=== PATIENT | male | born 1960 | race Caucasian/White ===

== ENCOUNTER 2017-11-27 08:33 | Inpatient (IN) | payer OTHER ==
[2017-11-27 09:38] VITALS: BMI 29.9
--- NOTE | 2017-11-27 10:23 | HP ---
COWS - Scale Resting Pulse: 0= [place] 80 or Below Sweatin= Chills/Flushing Restless Observation: 1= Difficult to Sit Still Pupil Size: 0= Normal to Room Light Bone or Joint Aches: 1= Mild Discomfort Runny Nose/ Eye Tearin= Nasal Congestion GI Upset > 30mins: 1= Stomach Cramp Tremor Observation: 2= Slight Tremor Visible Yawning Observation: 0= None Anxiety or Irritability: 1=Feels Anxious/Irritable Goose Flesh Skin: 0=Smooth Skin COWS Score: 8 CIWA Score - CIWA Score Nausea/Vomitin Muscle Tremors: 4-Moderate,w/Arms Extend Anxiety: 4-Mod. Anxious/Guarded Agitation: 1-Slight > Activity Paroxysmal Sweats: 1-Minimal Palms Moist Orientation: 0-Oriented Tacttile Disturbances: 1-Very Mild Itch/Numbness Auditory Disturbances: 0-None Visual Disturbances: 1-Very Mild Sensitivity Headache: 1-Very Mild CIWA-Ar Total Score: 15 Admission ROS BHS - HPI Chief Complaint: I need help, I could have , I'm wasting my life Allergies/Adverse Reactions: Allergies Allergy/AdvReac Type Severity Reaction Status Date / Time No Known Allergies Allergy Verified 11/27/17 10:17 History of Present Illness: 57 yo gentleman here for detox from alcohol and opiates - first time here but previously in [facility] and elsewhere. Three years ago was on [facility] MMTP (80mg ) but came off it, went into [facility] residential treatment. Tried suboxone in October 2017 but 'didn't like it'. Has had an overdose, never seizures. Was in [facility] ED on 11/24/17 because of chest pain related to drug use. Exam Limitations: Clinical Condition - Ebola screening Have you traveled outside of the country in the last 21 days: No (N) Have you had contact with anyone from an Ebola affected area: No Have you been sick,other than usual withdrawal symptoms: No Do you have a fever: No - Review of Systems Constitutional: Chills, Loss of Appetite, Night Sweats, Changes in sleep, Weakness EENT: reports: Blurred Vision, Nose Congestion Respiratory: reports: No Symptoms reported Cardiac: reports: Chest Tightness GI: reports: Poor Appetite, Poor Fluid Intake, Indigestion, Abdominal cramping : reports: Frequency Musculoskeletal: reports: Back Pain Integumentary: reports: Dryness Neuro: reports: Headache, Tremors Endocrine: reports: No Symptoms Reported Hematology: reports: No Symptoms Reported Psychiatric: reports: Judgement Intact, Mood/Affect Appropiate, Orientated x3, Anxious Other Systems: Reviewed and Negative Patient History - Patient Medical History Hx Asthma: Yes (inhaler) Hx Cancer: No Hx Hypertension: No Hx Hypercholesterolemia: No Hx Pacemaker: No Hx Seizures: No Hx Diabetes: No Hx Gastrointestinal Disorders: No Hx Liver Disease: No Hx Genitourinary Disorders: No Hx Sexually Transmitted Disorders: No Hx Renal Disease (ESRD): No Hx Thyroid Disease: No Hx Human Immunodeficiency Virus (HIV): No Hx Hepatitis C: No Hx Depression: Yes (due to my life, with anxiety, no meds) Hx Suicide Attempt: No Hx Bipolar Disorder: No Hx Schizophrenia: No - Patient Surgical History Past Surgical History: No - PPD History Previous Implant?: Yes Documented Results: Negative w/o proof Implanted On Prior [facility] Admission?: No PPD to be Administered?: Yes - Reproductive History Patient is a Female of Child Bearing Age (11 -55 yrs old): No (male) - Smoking Cessation Smoking history: Current every day smoker Have you smoked in the past 12 months: Yes Aproximately how many cigarettes per day: 5 Initiated information on smoking cessation: Yes 'Breaking Loose' booklet given: 11/27/17 (give on floor) - Substance & Tx. History Hx Alcohol Use: Yes Hx Substance Use: Yes Substance Use Type: Alcohol - Substances Abused alcohol Route: Oral Frequency: Daily Amount used: four cans of 24 oz Four [place] Age of first use: 18 Date of Last Use: 11/27/17 heroin Route: Inhalation Frequency: Daily Amount used: 5 bags Age of first use: 16 Date of Last Use: 11/27/17 Non-Rx Methadone Route: Oral Frequency: 1-3 times last 30 days Amount used: 80mg Age of first use: 56 Date of Last Use: 11/24/17 Family Disease History - Family Disease History Family Disease History: Heart Disease: Mother (, ), Other: Father (no knowledge), Mother, Daughter (three - living - healthy (one with asthma)) Admission Physical Exam BHS - Vital Signs Vital Signs: Vital Signs - 24 hr 11/27/17 09:33 Temperature 99.0 F Pulse Rate 62 Respiratory 17 Rate Blood Pressure 128/81 - Physical General Appearance: Yes: Nourished, Appropriately Dressed, Moderate Distress, Tremorous, Anxious HEENTM: Yes: EOMI, Hearing grossly Normal, Normocephalic, Normal Voice, Pharynx Normal Respiratory: Yes: Normal Breath Sounds, No Respiratory Distress Neck: Yes: No masses,lesions,Nodules Breast: Yes: Breast Exam Deferred Cardiology: Yes: Regular Rhythm, Regular Rate Abdominal: Yes: Soft Genitourinary: Yes: Frequency Back: Yes: Normal Inspection Musculoskeletal: Yes: full range of Motion, Gait Steady, Back pain, Muscle Pain Extremities: Yes: Normal Inspection, Normal Range of Motion, Non-Tender, Tremors Neurological: Yes: Fully Oriented, Alert, Motor Strength 5/5, Normal Mood/Affect , Normal Response Integumentary: Yes: Normal Color, Warm Lymphatic: Yes: Within Normal Limits - Diagnostic (1) Opioid dependence with withdrawal Current Visit: Yes Status: Chronic (2) Alcohol dependence with uncomplicated withdrawal Current Visit: Yes Status: Chronic (3) HTN (hypertension) Current Visit: Yes Status: Chronic Qualifiers: Hypertension type: essential hypertension Qualified Code(s): I10 - Essential (primary) hypertension (4) Asthma Current Visit: Yes Status: Chronic Qualifiers: Asthma severity: mild Asthma persistence: intermittent Asthma complication type: unspecified Qualified Code(s): J45.20 - Mild intermittent asthma, uncomplicated (5) Nicotine dependence Current Visit: Yes Status: Acute Qualifiers: Nicotine product type: cigarettes Substance use status: uncomplicated Qualified Code(s): F17.210 - Nicotine dependence, cigarettes, uncomplicated Cleared for Admission [facility] - Detox or Rehab [facility] Level of Care: Medically Managed Detox Regimen/Protocol: Methadone/Librium [facility] Breath Alcohol Content Breath Alcohol Content: 0.033 Urine Drug Screen - Results Drug Screen Negative: No Urine Drug Screen Results: OPI-Opiates, MTD-Methadone, FEN-Fentanyl
[2017-11-27] MEDS ORDERED: MENTHOL/PHENOL 1 EACH UD MM PRN (10:34)
[2017-11-27] MEDS ORDERED: MAGNESIUM CITRATE 300 ML BOTTLE PO PRN (10:34)
[2017-11-27] MEDS ORDERED: ACETAMINOPHEN 325 MG TABLET (FP) PO PRN (10:34)
[2017-11-27] MEDS ORDERED: guaiFENesin/D-METHORPHAN HB 10 ML UNIT-DOSE CUPS PO PRN (10:34)
[2017-11-27] MEDS ORDERED: MAGNESIUM HYDROX 2400MG/30ML ORAL SUSPENSION 30 ML CUP PO PRN (10:34)
[2017-11-27] MEDS ORDERED: P-EPHED 60MG/TRIPROLIDI 2.5MG TABLET PO PRN (10:34)
[2017-11-27] MEDS ORDERED: NICOTINE POLACRILEX 4 MG GUM BUC PRN (10:34)
[2017-11-27] MEDS ORDERED: LOPERAMIDE HCL 2 MG CAPSULE PO PRN (10:34)
[2017-11-27] MEDS ORDERED: hydrOXYzine PAMOATE 25 MG CAPSULE (FP) PO PRN (10:34)
[2017-11-27] MEDS ORDERED: chlordiazePOXIDE HCL 25 MG CAPSULE PO PRN (10:34)
[2017-11-27] MEDS ORDERED: MAG HYDROX/AL HYDROX/SIMETH 30 ML UNIT-DOSE CUP PO PRN (10:34)
[2017-11-27] MEDS ORDERED: chlordiazePOXIDE HCL 25 MG CAPSULE PO ONE (12:00)
[2017-11-27] MEDS ORDERED: METHADONE HCL 10 MG TABLET (FOR DETOX USE ONLY) PO ONE ×2 (12:30→23:00)
[2017-11-27] MEDS: HYDROCHLOROTHIAZIDE 25 MG TABLET (FP) PO SCH (12:52)
[2017-11-27] MEDS: ALBUTEROL SO4 8 GM HFA INHALER IH PRN ×2 (17:17→23:21)
[2017-11-27] MEDS: chlordiazePOXIDE HCL 25 MG CAPSULE PO SCH ×2 (17:17→22:27)
[2017-11-27 18:16] LABS: URINE APPEARANCE SLCLOUDY; URINE BILIRUBIN NEGATIVE (<2.0 mg/dL); URINE COLOR YELLOW; URINE GLUCOSE (UA) NEGATIVE (NEGATIVE); URINE KETONE NEGATIVE (NEGATIVE); URINE LEUK ESTERASE NEGATIVE (NEGATIVE); URINE NITRITE NEGATIVE (NEGATIVE); URINE PROTEIN NEGATIVE (NEGATIVE); URINE UROBILINOGEN NEGATIVE mg/dL (0.2-1.0)
[2017-11-27] MEDS ORDERED: MELATONIN 5 MG TABLETS PO PRN (22:00)
[2017-11-27] MEDS: THIAMINE HCL 100 MG TABLET (FP) PO SCH (22:27)
[2017-11-28] MEDS: chlordiazePOXIDE HCL 25 MG CAPSULE PO SCH ×4 (05:14→22:38)
[2017-11-28] MEDS ORDERED: METHADONE HCL 10 MG TABLET (FOR DETOX USE ONLY) PO SCH (10:00)
[2017-11-28 10:38] LABS: HEMATOCRIT 40.6 % (35.4-49); HEMOGLOBIN 13.4 GM/dL (11.7-16.9); MCH 28.6 pg (25.7-33.7); MEAN CELL VOLUME 86.8 fl (80-96); PLATELET COUNT 203 K/MM3 (134-434); RBC 4.68 M/mm3 (4.00-5.60); RDW 13.9 % (11.9-15.9); WHITE BLOOD COUNT 6.1 K/mm3 (4.0-10.0)
[2017-11-28] MEDS: PRENATAL VITAMINS W/ FOLIC ACID TABLET (FP) PO SCH (10:39)
[2017-11-28] MEDS: HYDROCHLOROTHIAZIDE 25 MG TABLET (FP) PO SCH (10:39)
[2017-11-28 10:52] LABS: CHLORIDE 105 mmol/L (98-107); POTASSIUM 3.7 mmol/L (3.5-5.1); SODIUM 142 mmol/L (136-145)
[2017-11-28 11:00] LABS: ALBUMIN 3.2 g/dl (3.4-5.0); ALK PHOS 48 U/L (45-117); ANION GAP 9 MMOL/L (8-16); BILIRUBIN,TOTAL 0.5 mg/dL (0.2-1.0); BLOOD UREA NITROGEN 13 mg/dL (7-18); CALCIUM 8.3 mg/dL (8.5-10.1); CO2 28 mmol/L (21-32); CREATININE 0.6 mg/dL (0.55-1.3); GLUCOSE,RANDOM 90 mg/dL (74-106); SGOT/AST 12 U/L (15-37); SGPT/ALT 18 U/L (13-61); TOT PROT 5.8 g/dl (6.4-8.2)
--- NOTE | 2017-11-28 14:41 | PN ---
[facility] CIWA - CIWA Score Nausea/Vomitin Muscle Tremors: 4-Moderate,w/Arms Extend Anxiety: 4-Mod. Anxious/Guarded Agitation: 4-Moderately Restless Paroxysmal Sweats: 3 Orientation: 0-Oriented Tacttile Disturbances: 1-Very Mild Itch/Numbness Auditory Disturbances: 0-None Visual Disturbances: 0-None Headache: 0-None Present CIWA-Ar Total Score: 19 S COWS - Scale Resting Pulse: 0= [place] 80 or Below Sweatin= Chills/Flushing Restless Observation: 3= Extraneous Movement Pupil Size: 1= Pupils >than Normal Bone or Joint Aches: 2= Severe Diffuse Aches Runny Nose/ Eye Tearin= Runny Nose/Eyes GI Upset > 30mins: 2= Nausea/Diarrhea Tremor Observation of Outstretched Hands: 2= Slight Tremor Visible Yawning Observation: 1= 1-2x During Session Anxiety or Irritability: 2=Irritable/Anxious Goose Flesh Skin: 0=Smooth Skin COWS Score: 16 S Progress Note (SOAP) Subjective: Body ache, sweating, chills, interrupted sleep Objective: 11/28/17 14:39 Last Vital Signs Temp Pulse Resp BP Pulse Ox 97.0 F L 60 18 128/76 11/28/17 13:51 11/28/17 13:51 11/28/17 13:51 11/28/17 13:51 Laboratory Tests 11/27/17 11/28/17 11/28/17 12:13 07:25 07:25 WBC 6.1 RBC 4.68 Hgb 13.4 Hct 40.6 MCV 86.8 MCH 28.6 MCHC 33.0 RDW 13.9 Plt Count 203 MPV 8.0 Sodium 142 Potassium 3.7 Chloride 105 Carbon Dioxide 28 Anion Gap 9 BUN 13 Creatinine 0.6 Creat Clearance w eGFR > 60 Random Glucose 90 Calcium 8.3 L Total Bilirubin 0.5 AST 12 L ALT 18 Alkaline Phosphatase 48 Total Protein 5.8 L Albumin 3.2 L Urine Color Yellow Urine Appearance Slcloudy Urine pH 5.0 Ur Specific [place] 1.014 Urine Protein Negative Urine Glucose (UA) Negative Urine Ketones Negative Urine Blood Negative Urine Nitrite Negative Urine Bilirubin Negative Urine Urobilinogen Negative Ur Leukocyte Esterase Negative RPR Titer 11/28/17 07:25 WBC RBC Hgb Hct MCV MCH MCHC RDW Plt Count MPV Sodium Potassium Chloride Carbon Dioxide Anion Gap BUN Creatinine Creat Clearance w eGFR Random Glucose Calcium Total Bilirubin AST ALT Alkaline Phosphatase Total Protein Albumin Urine Color Urine Appearance Urine pH Ur Specific [place] Urine Protein Urine Glucose (UA) Urine Ketones Urine Blood Urine Nitrite Urine Bilirubin Urine Urobilinogen Ur Leukocyte Esterase RPR Titer Nonreactive Labs reviewed Assessment: 11/28/17 14:40 Withdrawal symptoms Plan: Continue detox
--- NOTE | 2017-11-28 22:30 | EKG ---
Test Reason : Blood Pressure : / mmHG Vent. Rate : 058 BPM Atrial Rate : 058 BPM P-R Int : 166 ms QRS Dur : 100 ms QT Int : 444 ms P-R-T Axes : 050 -05 030 degrees QTc Int : 435 ms SINUS BRADYCARDIA SEPTAL INFARCT , AGE UNDETERMINED ABNORMAL ECG NO PREVIOUS ECGS AVAILABLE Confirmed by TONY BROWN MD ([id number]) on 11/28/2017 10:29:58 PM Referred By: Confirmed By:OTNY BROWN MD
[2017-11-28] MEDS: THIAMINE HCL 100 MG TABLET (FP) PO SCH (22:38)
[2017-11-28] MEDS: ALBUTEROL SO4 8 GM HFA INHALER IH PRN (22:40)
[2017-11-29] MEDS: chlordiazePOXIDE HCL 25 MG CAPSULE PO SCH ×2 (05:19→10:31)
[2017-11-29] MEDS: PRENATAL VITAMINS W/ FOLIC ACID TABLET (FP) PO SCH (10:30)
[2017-11-29] MEDS: METHADONE HCL 5 MG TABLET (FOR DETOX USE ONLY) PO SCH (10:31)
[2017-11-29] MEDS: HYDROCHLOROTHIAZIDE 25 MG TABLET (FP) PO SCH (10:31)
[2017-11-29] MEDS: IBUPROFEN 400 MG TABLET (FP) PO PRN (15:16)
[2017-11-29] MEDS: chlordiazePOXIDE 5 MG CAPSULE PO SCH ×2 (17:34→22:16)
--- NOTE | 2017-11-29 18:01 | PN ---
BHS COWS - Scale Resting Pulse: 0= [place] 80 or Below Sweatin=Flushed/Facial Moisture Restless Observation: 3= Extraneous Movement Pupil Size: 0= Normal to Room Light Bone or Joint Aches: 1= Mild Discomfort Runny Nose/ Eye Tearin= Nasal Congestion GI Upset > 30mins: 1= Stomach Cramp Tremor Observation of Outstretched Hands: 2= Slight Tremor Visible Yawning Observation: 1= 1-2x During Session Anxiety or Irritability: 2=Irritable/Anxious Goose Flesh Skin: 0=Smooth Skin COWS Score: 13 BHS Progress Note (SOAP) Subjective: swelling to face ?toothaache Objective: 11/29/17 18:00 A O x 3 Swelling/tenderness to L side of face around nasolabial folds No s/ of tooth decay No neuro deficit Assessment: 11/29/17 18:01 withdrawal sx facial swelling/pain Plan: continue detox motrin for pain
[2017-11-29] MEDS: ALBUTEROL SO4 8 GM HFA INHALER IH PRN (19:29)
[2017-11-29] MEDS: THIAMINE HCL 100 MG TABLET (FP) PO SCH (22:16)
[2017-11-30] MEDS: chlordiazePOXIDE 5 MG CAPSULE PO SCH ×2 (05:58→10:09)
[2017-11-30] MEDS: HYDROCHLOROTHIAZIDE 25 MG TABLET (FP) PO SCH (10:10)
[2017-11-30] MEDS: METHADONE HCL 5 MG TABLET (FOR DETOX USE ONLY) PO SCH (10:10)
[2017-11-30] MEDS: PRENATAL VITAMINS W/ FOLIC ACID TABLET (FP) PO SCH (10:10)
[2017-11-30] MEDS: IBUPROFEN 400 MG TABLET (FP) PO PRN ×2 (10:11→22:38)
--- NOTE | 2017-11-30 10:40 | PN ---
[facility] Progress Note Note: PATIENT TOLERATING DETOX WELL. C/O LEFT SIDE OF FACIAL SWELLING, ORIGIN UNKNOWN. DENIES FALLS, INJURY AND TOOTHACHE. Vital Signs Temperature 97.2 F L 11/30/17 09:25 Pulse Rate 67 11/30/17 09:25 Respiratory Rate 18 11/30/17 09:25 Blood Pressure 128/75 11/30/17 09:25 O2 Sat by Pulse Oximetry (%) Laboratory Tests 11/27/17 11/28/17 11/28/17 12:13 07:25 07:25 WBC 6.1 RBC 4.68 Hgb 13.4 Hct 40.6 MCV 86.8 MCH 28.6 MCHC 33.0 RDW 13.9 Plt Count 203 MPV 8.0 Sodium 142 Potassium 3.7 Chloride 105 Carbon Dioxide 28 Anion Gap 9 BUN 13 Creatinine 0.6 Creat Clearance w eGFR > 60 Random Glucose 90 Calcium 8.3 L Total Bilirubin 0.5 AST 12 L ALT 18 Alkaline Phosphatase 48 Total Protein 5.8 L Albumin 3.2 L Urine Color Yellow Urine Appearance Slcloudy Urine pH 5.0 Ur Specific [place] 1.014 Urine Protein Negative Urine Glucose (UA) Negative Urine Ketones Negative Urine Blood Negative Urine Nitrite Negative Urine Bilirubin Negative Urine Urobilinogen Negative Ur Leukocyte Esterase Negative RPR Titer 11/28/17 07:25 WBC RBC Hgb Hct MCV MCH MCHC RDW Plt Count MPV Sodium Potassium Chloride Carbon Dioxide Anion Gap BUN Creatinine Creat Clearance w eGFR Random Glucose Calcium Total Bilirubin AST ALT Alkaline Phosphatase Total Protein Albumin Urine Color Urine Appearance Urine pH Ur Specific [place] Urine Protein Urine Glucose (UA) Urine Ketones Urine Blood Urine Nitrite Urine Bilirubin Urine Urobilinogen Ur Leukocyte Esterase RPR Titer Nonreactive OBJ: ALERT AND ORIENTED SKIN WARM AND DRY CAR S1S2 RESP CTA BL FACE: LEFT CHEEK AREA WITH MILD SWELLING, NO REDNESS OR MAXILLARY TENDERNESS. A/P: FACIAL SWELLING COOL COMPRESS ORDERED DAILY AND PRN FACIAL XRAY CONTINUE MOTRIN PRN CONTINUE TO MONITOR CLINICALLY
[2017-11-30] MEDS: chlordiazePOXIDE HCL 10 MG CAPSULE PO SCH ×2 (17:36→22:37)
[2017-11-30] MEDS: ALBUTEROL SO4 8 GM HFA INHALER IH PRN (17:50)
[2017-11-30] MEDS: THIAMINE HCL 100 MG TABLET (FP) PO SCH (22:37)
[2017-12-01] MEDS: chlordiazePOXIDE HCL 10 MG CAPSULE PO SCH ×2 (05:30→10:31)
[2017-12-01] MEDS ORDERED: METHADONE HCL 10 MG TABLET (FOR DETOX USE ONLY) PO SCH (10:00)
[2017-12-01] MEDS: HYDROCHLOROTHIAZIDE 25 MG TABLET (FP) PO SCH (10:30)
[2017-12-01] MEDS: PRENATAL VITAMINS W/ FOLIC ACID TABLET (FP) PO SCH (10:30)
[2017-12-01] MEDS: IBUPROFEN 400 MG TABLET (FP) PO PRN ×2 (10:32→21:00)
--- NOTE | 2017-12-01 11:35 | PN ---
[facility] Progress Note Note: Patient presents for follow up facial swelling. Tolerating detox well. Patient for discharge in am but is pending rehab bed. Laboratory Tests 11/27/17 11/28/17 11/28/17 12:13 07:25 07:25 WBC 6.1 RBC 4.68 Hgb 13.4 Hct 40.6 MCV 86.8 MCH 28.6 MCHC 33.0 RDW 13.9 Plt Count 203 MPV 8.0 Sodium 142 Potassium 3.7 Chloride 105 Carbon Dioxide 28 Anion Gap 9 BUN 13 Creatinine 0.6 Creat Clearance w eGFR > 60 Random Glucose 90 Calcium 8.3 L Total Bilirubin 0.5 AST 12 L ALT 18 Alkaline Phosphatase 48 Total Protein 5.8 L Albumin 3.2 L Urine Color Yellow Urine Appearance Slcloudy Urine pH 5.0 Ur Specific [place] 1.014 Urine Protein Negative Urine Glucose (UA) Negative Urine Ketones Negative Urine Blood Negative Urine Nitrite Negative Urine Bilirubin Negative Urine Urobilinogen Negative Ur Leukocyte Esterase Negative RPR Titer 11/28/17 07:25 WBC RBC Hgb Hct MCV MCH MCHC RDW Plt Count MPV Sodium Potassium Chloride Carbon Dioxide Anion Gap BUN Creatinine Creat Clearance w eGFR Random Glucose Calcium Total Bilirubin AST ALT Alkaline Phosphatase Total Protein Albumin Urine Color Urine Appearance Urine pH Ur Specific [place] Urine Protein Urine Glucose (UA) Urine Ketones Urine Blood Urine Nitrite Urine Bilirubin Urine Urobilinogen Ur Leukocyte Esterase RPR Titer Nonreactive Vital Signs Temperature 97.4 F L 12/01/17 09:19 Pulse Rate 67 12/01/17 09:19 Respiratory Rate 18 12/01/17 09:19 Blood Pressure 135/82 12/01/17 09:19 O2 Sat by Pulse Oximetry (%) PE: alert and oriented skin warm and dry face: left side cheek area facial swelling improved. No redness or ecchymosis noted. Small swollen area noted at left upper cheek area. car s1s2 resp cta bl a/p: facial swelling withdrawal syndrome facial xray results pending continue cool compress continue detox as per protocol
[2017-12-01] MEDS: ALBUTEROL SO4 8 GM HFA INHALER IH PRN (22:37)
[2017-12-01] MEDS: THIAMINE HCL 100 MG TABLET (FP) PO SCH (22:38)
[2017-12-02] MEDS ORDERED: METHADONE HCL 5 MG TABLET (FOR DETOX USE ONLY) PO SCH (06:00)
[2017-12-02 06:09] VITALS: PULSE 56
[2017-12-02 09:20] VITALS: BP 132/75; TEMP 97.3
[2017-12-02] MEDS: HYDROCHLOROTHIAZIDE 25 MG TABLET (FP) PO SCH (10:30)
[2017-12-02] MEDS: PRENATAL VITAMINS W/ FOLIC ACID TABLET (FP) PO SCH (10:31)
--- NOTE | 2017-12-02 10:43 | DS ---
[facility] Detox Discharge Summary Admission Date: 11/27/17 - History Present History: Alcohol Dependence, Opioid Dependence - Physical Exam Results Vital Signs: Vital Signs Temperature 97.3 F L 12/02/17 09:19 Pulse Rate 56 L 12/02/17 09:19 Respiratory Rate 18 12/02/17 09:19 Blood Pressure 132/75 12/02/17 09:19 O2 Sat by Pulse Oximetry (%) Pertinent Admission Physical Exam Findings: Patient discharged to rehab today (5N). Patient medically stable. Denies medical complaints. Left side facial swelling subsided. XRAY interpretation pending. Patient denies any complaints to facial area. Denies SI/HI. In NAD. Tolerated detox well. Responded well to treatment. Discharge instructions provided. - Treatment Hospital Course: Detox Protocol Followed, Detoxed Safely, Responded well, Discharged Condition Good, Rehab Referral Accepted - Medication Discharge Medications: Ambulatory Orders Albuterol Sulfate Inhaler - [Ventolin Hfa Inhaler -] 2 inh PO Q4H PRN 11/27/17 Hydrochlorothiazide [Hctz -] 25 mg PO DAILY 11/27/17 - Diagnosis (1) Alcohol dependence with uncomplicated withdrawal Current Visit: Yes Status: Resolved (2) Opioid dependence with withdrawal Current Visit: Yes Status: Resolved (3) HTN (hypertension) Current Visit: Yes Status: Chronic Qualifiers: Hypertension type: essential hypertension Qualified Code(s): I10 - Essential (primary) hypertension - AMA Did Patient Leave Against Medical Advice: No
== END 2017-12-02 12:41 | disposition other institution (70) | DRG 773 ==
LOC: YASAS 08:33 → Y3N 11:22
PROC: HZ2ZZZZ Detoxification Services for Substance Abuse Treatment (ICD-10-PCS; principal; 2017-11-27)
DX: F11.23 Opioid dependence with withdrawal (principal); F10.230 Alcohol dependence with withdrawal, uncomplicated; F17.210 Nicotine dependence, cigarettes, uncomplicated; F41.8 Other specified anxiety disorders; I10 Essential (primary) hypertension; J45.20 Mild intermittent asthma, uncomplicated; R22.0 Localized swelling, mass and lump, head
CPT/HCPCS: 36415; 70150-TC-FY; 80053; 81003; 85027; 86593; 93005; 93010

== ENCOUNTER 2017-12-02 12:44 | Inpatient (IN) | payer OTHER ==
[2017-12-02] MEDS ORDERED: ACETAMINOPHEN 325 MG TABLET (FP) PO PRN (13:18)
[2017-12-02] MEDS ORDERED: guaiFENesin/D-METHORPHAN HB 10 ML UNIT-DOSE CUPS PO PRN (13:18)
[2017-12-02] MEDS ORDERED: P-EPHED 60MG/TRIPROLIDI 2.5MG TABLET PO PRN (13:18)
[2017-12-02] MEDS ORDERED: MENTHOL/PHENOL 1 EACH UD MM PRN (13:18)
[2017-12-02] MEDS ORDERED: MAGNESIUM HYDROX 2400MG/30ML ORAL SUSPENSION 30 ML CUP PO PRN (13:18)
[2017-12-02] MEDS ORDERED: LOPERAMIDE HCL 2 MG CAPSULE PO PRN (13:18)
[2017-12-02] MEDS ORDERED: MAG HYDROX/AL HYDROX/SIMETH 30 ML UNIT-DOSE CUP PO PRN (13:18)
[2017-12-02] MEDS ORDERED: MAGNESIUM CITRATE 300 ML BOTTLE PO PRN (13:18)
[2017-12-02] MEDS ORDERED: ALBUTEROL SO4 8 GM HFA INHALER IH PRN (13:20)
--- NOTE | 2017-12-02 13:42 | HP ---
Psychiatrist Admission - Data Date of interview: 12/02/17 Admission source: 3N Identifying data: This is the first Inpatient Rehabilitation admission for this 57 years old male, living as , father of 3 daughters, employed as professional driver, homeless Medical History: Significant for bronchial asthma and hypertension. Smokes 5 cigarettes daily Psychiatric History: Denies history of previous psychiatric treatment Physical/Sexual Abuse/Trauma History: Denies history of emotional, physical or sexual abuse as DV relationship. No service Additional Comment: Reports history of multiple arrests including one felony conviction. Denies being on parole/probation at present Allergies/Adverse Reactions: Allergies Allergy/AdvReac Type Severity Reaction Status Date / Time No Known Allergies Allergy Verified 11/27/17 10:17 Date of last physical exam: 11/27/17 Concur with the findings of this exam: Yes - Substance Abuse/Tx History Hx Alcohol Use: Yes Hx Substance Use: Yes Substance Use Type: Alcohol (Started drinking alcohol at age 16, consumes 4x 24oz of four [place] daily. Last drank on 11/27/17), Heroin (Started using heroin at age 16, consumes 5 bags daily. Last used on 11/27/17), Opiates (Started using nonRX methadone at age 56, consumes 80 mg 1-3 times in the last 30 days. Last used on 11/24/17) Hx Substance Use Treatment: Yes (Multiple inpt detox & 3 inpt rehab admissions) Mental Status Exam - Mental Status Exam Alert and Oriented to: Time, Place, Person Cognitive Function: Fair Patient Appearance: Well Groomed Mood: Anxious Affect: Appropriate Patient Behavior: Cooperative Speech Pattern: Clear Voice Loudness: Normal Thought Process: Intact Thought Disorder: Not Present Hallucinations: Denies Suicidal Ideation: Denies Homicidal Ideation: Denies Insight/Judgement: Fair Sleep: Fair Appetite: Fair Muscle strength/Tone: Normal Gait/Station: Normal Psychiatric Findings - Problem List ([place] 1, 2,3) (1) Alcohol dependence Current Visit: Yes Status: Acute (2) Opioid dependence Current Visit: Yes Status: Acute (3) Nicotine dependence Current Visit: No Status: Chronic Qualifiers: (4) Substance-induced anxiety disorder Current Visit: Yes Status: Acute (5) Asthma Current Visit: Yes Status: Chronic (6) HTN (hypertension) Current Visit: No Status: Chronic Qualifiers: Hypertension type: essential hypertension Qualified Code(s): I10 - Essential (primary) hypertension - Initial Treatment Plan Initial Treatment Plan: Monitor progress
[2017-12-02] MEDS ORDERED: ALBUTEROL SO4 0.083% IH SOL 2.5 MG/3 ML VIAL.NEB. NEB PRN (13:56)
[2017-12-02 14:52] VITALS: BMI 31.0
[2017-12-02] MEDS: THIAMINE HCL 100 MG TABLET (FP) PO SCH (21:40)
[2017-12-03] MEDS: IBUPROFEN 400 MG TABLET (FP) PO PRN (06:31)
[2017-12-03] MEDS: HYDROCHLOROTHIAZIDE 25 MG TABLET (FP) PO SCH (10:55)
[2017-12-03] MEDS: PRENATAL VITAMINS W/ FOLIC ACID TABLET (FP) PO SCH (10:55)
[2017-12-03] MEDS ORDERED: PNEUMOC 13-VAL CONJ-DIP CRM/PF 0.5 ML DISP.SYRIN IM ONE (12:00)
[2017-12-03] MEDS ORDERED: PNEUMOCOCCAL 23 VACCINE 0.5 ML VIAL IM ONE (12:00)
[2017-12-03] MEDS ORDERED: FLU VACCINE QUAD 60 MCG/0.5 ML (MDV 18-19) IM ONE (12:00)
[2017-12-03] MEDS: THIAMINE HCL 100 MG TABLET (FP) PO SCH (21:41)
[2017-12-03] MEDS: MELATONIN 5 MG TABLETS PO PRN (21:42)
[2017-12-04] MEDS: HYDROCHLOROTHIAZIDE 25 MG TABLET (FP) PO SCH (10:11)
[2017-12-04] MEDS: PRENATAL VITAMINS W/ FOLIC ACID TABLET (FP) PO SCH (10:11)
[2017-12-04] MEDS: MELATONIN 5 MG TABLETS PO PRN (21:47)
[2017-12-04] MEDS: THIAMINE HCL 100 MG TABLET (FP) PO SCH (21:47)
[2017-12-05] MEDS: PRENATAL VITAMINS W/ FOLIC ACID TABLET (FP) PO SCH (10:23)
[2017-12-05] MEDS: HYDROCHLOROTHIAZIDE 25 MG TABLET (FP) PO SCH (10:23)
[2017-12-05] MEDS: MELATONIN 5 MG TABLETS PO PRN (21:49)
[2017-12-05] MEDS: THIAMINE HCL 100 MG TABLET (FP) PO SCH (21:49)
[2017-12-06] MEDS: IBUPROFEN 400 MG TABLET (FP) PO PRN (11:09)
[2017-12-06] MEDS: PRENATAL VITAMINS W/ FOLIC ACID TABLET (FP) PO SCH (11:10)
[2017-12-06] MEDS: HYDROCHLOROTHIAZIDE 25 MG TABLET (FP) PO SCH (11:10)
--- NOTE | 2017-12-06 14:01 | PN ---
[facility] Progress Note Note: PT C/O AGITATIONS,BODY ACHES,IRRITABILITY, INTERMITTENT SLEEP. S/P DETOX x 4 DAYS. Vital Signs 12/06/17 06:43 Temperature 98.0 F Pulse Rate 57 L Respiratory 19 Rate Blood Pressure 133/79 PLAN;FLEXERIL 10 MG PO TID CONTINUE VISTARIL AND MOTRIN PRN DIRECTED.
[2017-12-06] MEDS: hydrOXYzine PAMOATE 50 MG CAPSULE (FP) PO PRN ×3 (14:48→21:36)
[2017-12-06] MEDS: CYCLOBENZAPRINE HCL 10 MG TABLET (FP) PO SCH ×2 (14:49→21:36)
[2017-12-06] MEDS: MELATONIN 5 MG TABLETS PO PRN (21:36)
[2017-12-06] MEDS: THIAMINE HCL 100 MG TABLET (FP) PO SCH (21:36)
[2017-12-07] MEDS: CYCLOBENZAPRINE HCL 10 MG TABLET (FP) PO SCH ×3 (06:22→21:23)
[2017-12-07] MEDS: HYDROCHLOROTHIAZIDE 25 MG TABLET (FP) PO SCH (10:30)
[2017-12-07] MEDS: PRENATAL VITAMINS W/ FOLIC ACID TABLET (FP) PO SCH (10:30)
[2017-12-07] MEDS: hydrOXYzine PAMOATE 50 MG CAPSULE (FP) PO PRN ×2 (10:31→21:23)
[2017-12-07] MEDS: THIAMINE HCL 100 MG TABLET (FP) PO SCH (21:23)
[2017-12-07] MEDS: MELATONIN 5 MG TABLETS PO PRN (21:24)
[2017-12-08] MEDS: CYCLOBENZAPRINE HCL 10 MG TABLET (FP) PO SCH ×3 (06:30→21:16)
[2017-12-08] MEDS: HYDROCHLOROTHIAZIDE 25 MG TABLET (FP) PO SCH (10:30)
[2017-12-08] MEDS: PRENATAL VITAMINS W/ FOLIC ACID TABLET (FP) PO SCH (10:30)
[2017-12-08] MEDS: hydrOXYzine PAMOATE 50 MG CAPSULE (FP) PO PRN (13:19)
[2017-12-08] MEDS: MELATONIN 5 MG TABLETS PO PRN (21:16)
[2017-12-08] MEDS: THIAMINE HCL 100 MG TABLET (FP) PO SCH (21:16)
[2017-12-09] MEDS: CYCLOBENZAPRINE HCL 10 MG TABLET (FP) PO SCH ×4 (07:00→21:40)
[2017-12-09] MEDS: HYDROCHLOROTHIAZIDE 25 MG TABLET (FP) PO SCH (10:26)
[2017-12-09] MEDS: PRENATAL VITAMINS W/ FOLIC ACID TABLET (FP) PO SCH (10:26)
[2017-12-09] MEDS: hydrOXYzine PAMOATE 50 MG CAPSULE (FP) PO PRN (17:29)
[2017-12-09] MEDS: MELATONIN 5 MG TABLETS PO PRN (21:40)
[2017-12-09] MEDS: THIAMINE HCL 100 MG TABLET (FP) PO SCH (21:40)
[2017-12-10] MEDS: CYCLOBENZAPRINE HCL 10 MG TABLET (FP) PO SCH ×3 (06:36→21:32)
[2017-12-10] MEDS: PRENATAL VITAMINS W/ FOLIC ACID TABLET (FP) PO SCH (10:26)
[2017-12-10] MEDS: HYDROCHLOROTHIAZIDE 25 MG TABLET (FP) PO SCH (10:26)
[2017-12-10] MEDS: hydrOXYzine PAMOATE 50 MG CAPSULE (FP) PO PRN (21:32)
[2017-12-10] MEDS: THIAMINE HCL 100 MG TABLET (FP) PO SCH (21:32)
[2017-12-11] MEDS: CYCLOBENZAPRINE HCL 10 MG TABLET (FP) PO SCH ×3 (06:49→21:46)
[2017-12-11] MEDS: PRENATAL VITAMINS W/ FOLIC ACID TABLET (FP) PO SCH (10:32)
[2017-12-11] MEDS: HYDROCHLOROTHIAZIDE 25 MG TABLET (FP) PO SCH (10:32)
[2017-12-11] MEDS: IBUPROFEN 400 MG TABLET (FP) PO PRN (10:35)
[2017-12-11] MEDS: THIAMINE HCL 100 MG TABLET (FP) PO SCH (21:46)
[2017-12-12] MEDS: CYCLOBENZAPRINE HCL 10 MG TABLET (FP) PO SCH ×3 (06:23→21:29)
[2017-12-12] MEDS: HYDROCHLOROTHIAZIDE 25 MG TABLET (FP) PO SCH (10:31)
[2017-12-12] MEDS: PRENATAL VITAMINS W/ FOLIC ACID TABLET (FP) PO SCH (10:32)
[2017-12-12] MEDS: THIAMINE HCL 100 MG TABLET (FP) PO SCH (21:29)
[2017-12-12] MEDS: hydrOXYzine PAMOATE 50 MG CAPSULE (FP) PO PRN (21:30)
[2017-12-12] MEDS: IBUPROFEN 400 MG TABLET (FP) PO PRN (21:30)
[2017-12-13] MEDS: CYCLOBENZAPRINE HCL 10 MG TABLET (FP) PO SCH ×2 (06:43→14:11)
[2017-12-13 07:26] VITALS: BP 117/70; PULSE 69; TEMP 98.1
[2017-12-13] MEDS: HYDROCHLOROTHIAZIDE 25 MG TABLET (FP) PO SCH (10:18)
[2017-12-13] MEDS: PRENATAL VITAMINS W/ FOLIC ACID TABLET (FP) PO SCH (10:18)
--- NOTE | 2017-12-13 12:39 | PN ---
Psychiatric Progress Note Vital Signs: Vital Signs Period Temp Pulse Resp BP Sys/Lynch Pulse Ox Last 24 Hr 98.1 F 69 18-19 117/70 Date of Session: 12/13/17 Chief Complaint:: Lamine still having sleeping difficulties,Melatonin doesnt really helping much HPI: alcohol,opioid dependence comorbid with substance induced sleep/mood disorder. ROS: BA,HTN. Current Medications: Active Medications Generic Name Dose Route Start Last Admin Trade Name Freq PRN Reason Stop Dose Admin Acetaminophen 650 mg 12/02/17 13:18 Tylenol - PO Q4H PRN FEVER Al Hydroxide/Mg Hydroxide 30 ml 12/02/17 13:18 Mylanta Oral Suspension - PO Q6H PRN DYSPEPSIA Albuterol Sulfate 2 puff 12/02/17 13:20 12/08/17 13:18 Ventolin Hfa Inhaler - IH 2 puff Q4H PRN Administration ASTHMA Albuterol Sulfate 1 amp 12/02/17 13:56 Ventolin 0.083% Nebulizer Soln - NEB Q4H PRN SHORT OF BREATH/WHEEZING Cyclobenzaprine HCl 10 mg 12/09/17 07:15 12/13/17 06:43 Flexeril - PO Not Given TID FARRAH Eucalyptus/Menthol/Phenol/Sorbitol 1 each 12/02/17 13:18 Cepastat Lozenge - MM Q4H PRN SORE THROAT Guaifenesin 10 ml 12/02/17 13:18 Robitussin Dm - PO Q6H PRN COUGH Hydrochlorothiazide 25 mg 12/03/17 10:00 12/13/17 10:18 Hctz - PO 25 mg DAILY FARRAH Administration Hydroxyzine Pamoate 50 mg 12/02/17 13:18 12/12/17 21:30 Vistaril - PO 50 mg Q4H PRN Administration AGITATION Ibuprofen 400 mg 12/02/17 13:18 12/12/17 21:30 Motrin - PO 400 mg Q6H PRN Administration Pain Level 4-6 Loperamide HCl 4 mg 12/02/17 13:18 Imodium - PO Q6H PRN DIARRHEA Magnesium Citrate 300 ml 12/02/17 13:18 Citroma - PO Q48H PRN CONSTIPATION Magnesium Hydroxide 30 ml 12/02/17 13:18 Milk Of Magnesia - PO DAILY PRN CONSTIPATION Melatonin 5 mg 12/02/17 22:00 12/09/17 21:40 Melatonin PO 5 mg HS PRN Administration INSOMNIA Multivit/Folic Acid/Iron 1 tab 12/03/17 10:00 12/13/17 10:18 Vitamins ([facility]) - PO 1 tab DAILY FARRAH Administration Pseudoephedrine/Triprolidine 1 combo 12/02/17 13:18 Actifed - PO TID PRN NASAL CONGESTION Thiamine HCl 100 mg 12/02/17 22:00 12/12/17 21:29 Vitamin B1 - PO 100 mg HS FARRAH Administration Trazodone HCl 50 mg 12/13/17 22:00 Desyrel - PO HS FARRAH Current Side Effect: No Lab tests ordered: No Lab tests reviewed: Yes Provider note:: chart was revuewed,'s notes appreciated.patient was seen due to ongoing sleeping difficulties:inability to fall asleep and interrupted sleeping pattern.patient reports that melatonin is not hari helping at this time.properties of trazodone has been discussed with the patient including side effects,benefitrs and dose4 adjustement.trazodone 50 mg po hs will be started tonight. supportive therapy provided. Mental Status Exam - Mental Status Exam Alert and Oriented to: Time, Place, Person Cognitive Function: Grossly Intact Patient Appearance: Well Groomed Mood: Anxious Affect: Labile Patient Behavior: Cooperative Speech Pattern: Clear Voice Loudness: Normal Thought Process: Goal Oriented Thought Disorder: Not Present Hallucinations: Denies Suicidal Ideation: Denies Homicidal Ideation: Denies Insight/Judgement: Fair Sleep: Difficulty falling asleep Appetite: Good Muscle strength/Tone: Normal Gait/Station: Normal Psychiatric Treatment Plan - Problem List (1) Alcohol dependence Current Visit: Yes (2) Opioid dependence Current Visit: Yes (3) Substance-induced anxiety disorder Current Visit: Yes (4) Asthma Current Visit: Yes (5) HTN (hypertension) Current Visit: No Qualifiers: Hypertension type: essential hypertension Qualified Code(s): I10 - Essential (primary) hypertension
--- NOTE | 2017-12-13 15:44 | PN ---
[facility] Progress Note Note: NURSE ISMAEL CALLED TO REPORT PT IS DISCHARGING NOW AND NEEDS RX. RX FOR HCTZ AND ALBUTEROL SENT TO [facility] FOR PATIENT HOSPITAL PHARMACIST.
--- NOTE | 2017-12-13 16:02 | PN ---
S Progress Note Note: patient completed this program .he left early due to his job situation.see staff notes for details.
[2017-12-13] MEDS ORDERED: traZODone HCL 50 MG TABLET (FP) PO SCH (22:00)
== END 2017-12-13 16:05 | disposition home or self-care (01) | DRG 772 ==
LOC: YASAS 12:44 → Y5N 12:45
PROVIDERS: ADMIT Psychiatry & Neurology Psychiatry; ATTEND Psychiatry & Neurology Psychiatry
PROC: HZ42ZZZ Group Counseling for Substance Abuse Treatment, Cognitive-Behavioral (ICD-10-PCS; principal; 2017-12-02)
DX: F11.20 Opioid dependence, uncomplicated (principal); F10.20 Alcohol dependence, uncomplicated; F19.280 Other psychoactive substance dependence with psychoactive substance-induced anxiety disorder; I10 Essential (primary) hypertension; J45.909 Unspecified asthma, uncomplicated; R52 Pain, unspecified
CPT/HCPCS: 90688; 90732; G0008; G0009